=== PATIENT | female | born 1985 | race Caucasian/White ===

== ENCOUNTER 2024-01-31 08:21 | Emergency (ER) | payer MEDICAID ==
[~2024-01-31] VITALS: Ht 160 cm; Wt 57.0 kg
[2024-01-31 08:25] VITALS: TEMP 98.6; O2SAT 100
[2024-01-31] MEDS: METOCLOPRAMIDE HCL 10MG/2ML VIAL IV ONE (09:11)
[2024-01-31] MEDS: SODIUM CHLORIDE 0.9% 1,000 ML IV ONE ×2 (09:12→11:55)
[2024-01-31] MEDS: KETOROLAC 15MG/ML VIAL IV ONE (09:12)
[2024-01-31] MEDS: ACETAMINOPHEN 325MG TABLET PO ONE (09:12)
[2024-01-31] MEDS: DIPHENHYDRAMINE 50MG/ML VIAL IV ONE (09:12)
[2024-01-31 13:03] LABS: HCG SCREEN NEGATIVE
[2024-01-31 13:20] VITALS: BP 98/63; PULSE 70; RESP 19
[2024-01-31] MEDS ORDERED: DIPH28.33 TP (14:09)
== END 2024-01-31 09:18 ==
LOC: ER 08:21
DX: R51.9 Headache, unspecified (principal); R21 Rash and other nonspecific skin eruption; Z20.822 Contact with and (suspected) exposure to COVID-19
CPT/HCPCS: 99284; 96365; 96375; 96361; 96366; 87426; 84703; 87804 ×2; J1200; J1885; J2765; J7030